=== PATIENT | female | born 1935 | race Caucasian/White ===

== ENCOUNTER 2017-06-15 13:19 | Emergency (ER) | payer OTHER ==
[~2017-06-15] VITALS: Ht 170.2 cm; Wt 68.0 kg
[~2017-06-15 13:19] MED LIST: ASPIR-LOW81 M1 PO; ESTRADIOL PO; FLUOXETINE10 M1 PO; NAMENDA XR7 MG PO; NAMENDA5 MG PO; PRA40 PO; PRAVASTATIN40 MG PO; RIVASTIGMINE PO; SYN5 PO; SYNTHROID; TEN25 PO; TEN50 PO; VITAMIN D PO; [UNRECOGNIZED DRUG - OTHER] PO
[2017-06-15] MEDS ORDERED: NOR10 PO (15:11)
[2017-06-15] MEDS ORDERED: ESCITALOPRAM20 M1 PO (15:11)
[2017-06-15] MEDS ORDERED: EXELON4.6 MG/21 PO (15:13)
[2017-06-15] MEDS ORDERED: SEROQUEL25 MG PO (15:14)
[2017-06-15] MEDS ORDERED: TRAMADOL HCL50 MG PO (15:15)
[2017-06-15] MEDS ORDERED: LORAZEPAM1 MG PO (15:15)
[2017-06-15 15:35] LABS: BASOPHIL % 0.4 % (0-2); PLATELET COUNT 225 x10^3mcL (130-400); RED CELL DISTRIBUTION WIDTH 13.8 % (11.5-14.5)
[2017-06-15 15:44] LABS: CALCIUM 9.2 mg/dL (8.5-10.1); CARBON DIOXIDE 31.7 mmol/L (21-32); CHLORIDE SERUM 101 mmol/L (98-107); CREATININE SERUM 1.3 mg/dL (0.6-1.0); GLUCOSE SERUM 88 mg/dL (74-106); SODIUM SERUM 140 mmol/L (136-145)
[2017-06-15 15:49] LABS: ALBUMIN 3.8 g/dL (3.4-5.0); ALKALINE PHOSPHATASE 118 U/L (46-116); ALT/SGPT 21 U/L (14-59); AST/SGOT 30 U/L (15-37); BILIRUBIN TOTAL 0.49 mg/dL (0.20-1.00); TOTAL PROTEIN, SERUM 7.6 g/dL (6.4-8.2)
[2017-06-15 16:23] LABS: microscopic required? YES; urine erythrocyte 1+ (NEGATIVE)
[2017-06-15 17:40] VITALS: BP 124/66
== END 2017-06-15 17:40 | disposition home or self-care (01) ==
LOC: ED 13:19
PROVIDERS: Emergency Medicine
DX: G30.9 Alzheimer's disease, unspecified (principal); F02.80 Dementia in other diseases classified elsewhere, unspecified severity, without behavioral disturbance, psychotic disturbance, mood disturbance, and anxiety; E86.0 Dehydration; Z88.0 Allergy status to penicillin; I10 Essential (primary) hypertension
CPT/HCPCS: 83880; J7030